=== PATIENT | male | born 1965 | race Caucasian/White ===

== ENCOUNTER 2020-12-14 09:28 | Outpatient (CLI) | payer BC | END 2020-12-14 09:29 | disposition home or self-care (01) | LOC: CSHCT 09:28 | PROVIDERS: ATTEND Internal Medicine Gastroenterology | DX: K30 Functional dyspepsia (principal); R63.4 Abnormal weight loss; R10.9 Unspecified abdominal pain; K80.20 Calculus of gallbladder without cholecystitis without obstruction; K76.0 Fatty (change of) liver, not elsewhere classified; K63.89 Other specified diseases of intestine | CPT/HCPCS: 74177 ==